=== PATIENT | male | born 1995 | race Caucasian/White ===

== ENCOUNTER 2019-08-02 21:10 | Emergency (ER) | payer BC ==
[~2019-08-02] VITALS: Ht 175.3 cm; Wt 82.6 kg
--- NOTE | 2019-08-02 21:30 | NUR ---
Patient came from home and stated he got bitten from his friends dog. patient has laceration to the left hand. Nerovascular assesment done. Cpillary refill less than 3 seconds
[2019-08-02] MEDS ORDERED: TDAP DIPH,PERTUSS,TET VAC/PF 0.5 ML DISP.SYRIN IM ONE ×2 (21:45→22:17)
--- NOTE | 2019-08-02 22:41 | NUR ---
Dr. Martinez at patient bedside for treatment
--- NOTE | 2019-08-02 23:03 | NUR ---
Patient discharged to home in stable conditon. Written and verbal after care instructions given. Patient verbalizes understanding of instructions. patient alert and oriente x4. Patient self ambulatory with steady gait. Exit care and personal belongings taken with patient at discharge.
[2019-08-02 23:05] VITALS: BP 102/68
== END 2019-08-02 23:06 | disposition home or self-care (01) ==
LOC: ER 21:13
DX: S61.412A Laceration without foreign body of left hand, initial encounter (principal); S61.452A Open bite of left hand, initial encounter; Z88.0 Allergy status to penicillin; Z88.2 Allergy status to sulfonamides; F17.200 Nicotine dependence, unspecified, uncomplicated; F12.10 Cannabis abuse, uncomplicated; W54.0XXA Bitten by dog, initial encounter; Y93.89 Activity, other specified; Y92.89 Other specified places as the place of occurrence of the external cause; Y99.8 Other external cause status
CPT/HCPCS: 12002; 90471; 90715; 99283; J3490; A4217; A4663